=== PATIENT | female | born 1950 | race Caucasian/White ===

== ENCOUNTER 2017-03-23 05:39 | Inpatient (IN) | payer OTHER ==
--- NOTE | 2017-03-09 18:09 | HISTORY & PHYSICAL EXAMINATION ---
DATE OF ADMISSION: 03/23/2017 PROCEDURE: Right knee replacement. HISTORY OF PRESENT ILLNESS: The patient is a pleasant 66-year-old female who presents today for preop evaluation prior to right knee replacement. She states she is having pain in this knee for several years now, which has gradually worsened, has now gotten to the point that it is affecting her daily activities including walking, standing, going up and down steps. She has tried and failed previous cortisone injections as well as viscosupplementation and oral anti-inflammatories without relief. At this point in time, has failed conservative measures and would like to proceed with a right knee replacement. PAST MEDICAL HISTORY: 1. Hypertension. 2. High cholesterol. 3. GERD. 4. Anxiety. ALLERGIES: BETADINE. MEDICATIONS: 1. Purcell as needed for pain. 2. Lisinopril 10 mg daily. 3. Lovastatin 40 mg daily. 4. Mobic 15 mg daily. 5. Omeprazole 40 mg daily. 6. Sertraline 100 mg daily. PAST SURGICAL HISTORY: 1. Lower back surgery x4. 2. Previous rotator cuff repair. 3. Hysterectomy. FAMILY HISTORY: Noncontributory. SOCIAL HISTORY: The patient denies a history of smoking or tobacco use. No alcohol consumption. REVIEW OF SYSTEMS: Otherwise negative. Please see HPI for pertinent positives. PHYSICAL EXAMINATION: GENERAL: Gabe 66-year-old female in no acute distress, alert and oriented x3. HEENT: Normocephalic, atraumatic. CARDIAC: Regular rate and rhythm. No murmurs or gallops appreciated. Resting pulse 80 beats per minute. LUNGS: Clear to auscultation without rales or wheeze bilaterally. ABDOMEN: Soft, nontender. Bowel sounds present. EXTREMITIES: Right lower extremity is neurovascularly intact. Calves are soft and nontender. DP pulse +2. Demonstrates good quad tone. Straight leg raise without lag. No erythema or warmth. Has mild effusion. Overall has varus alignment. Range of motion is 0/3/115 and has diffuse tenderness. IMAGING: Reviewed of the right knee show findings consistent with degenerative joint disease including joint space narrowing, subchondral sclerosis, peripheral osteophytes noted. Has varus alignment. IMPRESSION: 1. Right knee degenerative joint disease. 2. Past medical history as outlined above. PLAN: Further care discussed with patient. At this point in time, has failed conservative measures and would like to proceed with a right knee replacement. We will place on aspirin 81 mg p.o. b.i.d. for a month postop. Otherwise, has no other questions or concerns.
[2017-03-21 15:07] VITALS: BMI 47.0
[2017-03-21 15:15] LABS: BASO % 0.6 %; BASO ABS # 0.04 K/uL (0-0.2); COMPLETE YES; EOS % 1.8 %; HEMATOCRIT 42.2 % (37-47); IG% 0.1 %; LYMPH % 17.6 %; MEAN CELL VOLUME 88.7 fL (80-100); MEAN CORPUSCULAR HEMOGLOBIN 28.8 pg (25-34); MEAN CORPUSCULAR HGB CONC 32.5 g/dl (32-36); MEAN PLATELET VOLUME 9.5 fL (7.4-10.4); MONO % 8.5 %; NEUT % 71.4 %; PLATELET COUNT 218 K/uL (130-400); RED BLOOD COUNT 4.76 M/uL (4.2-5.4)
[2017-03-21 15:21] LABS: URINE APPEARANCE CLOUDY (CLEAR); URINE COLOR DK YELLOW; URINE NITRITE NEG (NEG); URINE PH 5.5 (4.5-7.5); URINE SPECIFIC GRAVITY 1.031 (1.000-1.030); UROBILINOGEN NEG (NEG)
[2017-03-21 15:27] LABS: MANUAL MICROSCOPIC REQUIRED? NO; REVIEW REQ? NO; URINE BILIRUBIN NEG (NEG)
[2017-03-21 15:36] LABS: PARTIAL THROMBOPLASTIN RATIO 1.2; PROTHROMBIN TIME (PATIENT) 10.3 SECONDS (9.0-12.0)
--- NOTE | 2017-03-21 15:42 | PAT Medication Instructions ---
Service Date Mar 21, 2017. Current Home Medication List Hydrocodone/Acetaminophen 5MG/325MG (Preston 5MG/325MG), 1 TABLET PO DAILY PRN for Pain Lisinopril (Zestril), 10 MG PO HS Lovastatin (Mevacor), 40 MG PO QAM Meloxicam (Mobic), 15 MG PO QAM Naproxen (Naprosyn), 500 MG PO DAILY PRN for Pain Omeprazole (Prilosec), 20 MG PO QAM Sertraline (Zoloft), 1 TAB PO QAM Tramadol (Ultram), 50 MG PO Q8H PRN for Pain Medication Instructions For Your Scheduled Surgery - Hold the following medications PER SURGEONS INSTRUCTIONS: Meloxicam (Mobic), 15 MG PO QAM Naproxen (Naprosyn), 500 MG PO DAILY PRN for Pain - Hold the following medications 24 hours prior to surgery: Lisinopril (Zestril), 10 MG PO HS - Take the following medications the morning of surgery with a sip of water OTHERWISE NOTHING TO EAT OR DRINK AFTER MIDNIGHT: Omeprazole (Prilosec), 20 MG PO QAM Sertraline (Zoloft), 1 TAB PO QAM Hydrocodone/Acetaminophen 5MG/325MG (Preston 5MG/325MG), 1 TABLET PO DAILY PRN for Pain (may take up to 4 hours prior to surgery if needed) Tramadol (Ultram), 50 MG PO Q8H PRN for Pain (may take up to 4 hours prior to surgery if needed) Lovastatin (Mevacor), 40 MG PO QAM - Take the following medications as scheduled the night before surgery: Hydrocodone/Acetaminophen 5MG/325MG (Preston 5MG/325MG), 1 TABLET PO DAILY PRN for Pain Tramadol (Ultram), 50 MG PO Q8H PRN for Pain If you have any questions please call us at [phone] or [phone] or [phone]
[2017-03-21 16:15] LABS: CALCIUM 8.9 mg/dl (8.5-10.1); CREATININE 0.99 mg/dl (0.60-1.20); POTASSIUM 3.9 mmol/L (3.5-5.1)
--- NOTE | 2017-03-21 16:37 | DIAGNOSTIC IMAGING REPORT ---
CHEST PREADMISSION(PA/LAT) HISTORY: 66 years-old Female PAT preadmission exam. No acute chest complaints COMPARISON: None available TECHNIQUE: Frontal and lateral views of the chest FINDINGS: Cardiomediastinal and hilar silhouettes are within normal limits. There is atherosclerosis of the aorta. No pneumothorax, pleural effusion, focal airspace consolidation or overt pulmonary edema. Degenerative changes involve the spine and shoulders. There are surgical clips within the right upper abdomen suggesting prior cholecystectomy. IMPRESSION: No acute cardiopulmonary process. The above report was generated using voice recognition software. It may contain grammatical, syntax or spelling errors. Electronically signed by: Alverto Sahu M.D. 03/21/2017 4:36 PM Dictated Date/Time: 03/21/2017 4:35 PM
[~2017-03-23] VITALS: Ht 154.9 cm; Wt 111.9 kg
[2017-03-23] VITALS (9 sets, daily range): BP systolic 117–152; BP diastolic 72–82; PULSE 69–86; TEMP 36.5–37.2; O2SAT 93–98; Ht 154.9 cm; Wt 111.9 kg
[~2017-03-23 05:39] MED LIST: HYDR-5688 PO; LISI-461 PO; LOVA40TA4 PO; MELO7.5T5 PO; NAPR-1169 PO; OMEP20CA59 PO; SERT-234 PO; TRAM-10 PO
[2017-03-23] MEDS: TRANEXAMIC ACID INJ 1,000 MG in SODIUM CHLORIDE 0.9% 100ML 100 ML IV SCH ×2 (06:00→06:30)
[2017-03-23] MEDS ORDERED: LACTATED RINGER'S 1000ML 500 ML IV ONE (06:00)
[2017-03-23] MEDS ORDERED: FAMOTIDINE 20 MG TAB PO SCH (06:00)
[2017-03-23] MEDS ORDERED: DEXAMETHASONE 4 MG TAB PO SCH (06:00)
[2017-03-23] MEDS ORDERED: ROPIVACAINE 5MG/ML 30 ML 150 MG, BUPIVACAINE/EPINEPHR 0.5% MPF 30 ML, KETOROLAC TROMETH... INFIL SCH ×7 (06:00)
[2017-03-23] MEDS ORDERED: METOCLOPRAMIDE HCL 10 MG TAB PO SCH (06:00)
[2017-03-23] MEDS ORDERED: ACETAMINOPHEN 500 MG TAB PO SCH (06:00)
[2017-03-23] MEDS ORDERED: GABAPENTIN 300 MG CAP PO SCH (06:00)
[2017-03-23] MEDS ORDERED: CeleBREX 200 MG CAP PO SCH (06:00)
[2017-03-23] MEDS ORDERED: LACTATED RINGER'S 1000ML 1,000 ML IV SCH (06:00)
[2017-03-23] MEDS ORDERED: LACTATED RINGER'S 1000ML IV SCH (06:00)
[2017-03-23] MEDS ORDERED: CEFAZOLIN 2000 MG/60 ML D5W 60 ML IV SCH (06:00)
[2017-03-23] MEDS ORDERED: vitamin d PO (06:07)
[2017-03-23] MEDS ORDERED: BUPIVACAINE 0.5 % 5 MG/1 ML PF 10ML VIAL ONE (06:29)
[2017-03-23] MEDS ORDERED: BUPIVACAINE 0.25% 30 ML VIAL ONE (06:29)
--- NOTE | 2017-03-23 07:04 | History & Physical Bridge Note ---
H&P Re-Evaluation Bridge Note: I have examined the patient, reviewed the History & Physical and in the interval since the performance of the History & Physical I have noted the following changes of clinical significance: No changes noted
[2017-03-23] MEDS ORDERED: MIDAZOLAM HCL 1 MG/ML 2ML VIAL ONE (07:13)
[2017-03-23] MEDS ORDERED: KETAMINE HCL INJ 50 MG/ML 10 ML VIAL ONE (07:13)
[2017-03-23] MEDS ORDERED: FENTANYL CITRATE INJ 50 MCG/1 ML 2 ML VIAL ONE (07:13)
[2017-03-23] MEDS ORDERED: ORTHO JOINT ANESTHETIC ONE (07:56)
[2017-03-23] MEDS ORDERED: BACITRACIN 50000 UNIT VIAL ONE (07:56)
[2017-03-23] MEDS ORDERED: POVIDONE-IODINE OP SOLN 30 ML BTL ONE (07:56)
[2017-03-23] MEDS ORDERED: LIDOCAINE HCL 2% 2 ML VIAL (20MG/ML) ONE (08:37)
[2017-03-23] MEDS ORDERED: PROPOFOL IV EMULSION 10 MG/ML 20 ML VIAL IV ONE ×2 (08:37→11:44)
--- NOTE | 2017-03-23 09:22 | [facility] Operative Report ---
Operative Report Operative Date Mar 23, 2017. Pre-Operative Diagnosis Right knee degenerative joint disease Post-Operative Diagnosis Right knee degenerative joint disease Procedure(s) Performed Right total knee arthroplasty utilizing journey 2 nonlocked total knee arthroplasty size 4 femur 3 tibia Poly-[address] Damien Joseph Product Control And Logistics Analyst Surgeon(s) Jose Pyle PA-C Estimated Blood Loss 5cc Findings Patient presents with severe end-stage tricompartmental degenerative joint disease at failing attempts at conservative management including physical therapy anti-inflammatories relative rest activity modification corticosteroid injections bracing thorough discussion regarding risk altercations is been had regarding total knee arthroplasty blood loss injury to vessels and nerves patient understands was Caucasians elect proceed for total knee arthroplasty Specimens A. Right knee bone and tissue Complication(s) None Disposition Recovery Room / PACU Indications Patient presents after failing attempts at conservative management severe end- stage stage Tri compartmental degenerative joint disease medial subchondral osteophytes subchondral sclerosis shifted femur on tibia medially with varus alignment and large medial and lateral osteophytes Description of Procedure After proper prepping and draping of the Right lower extremity anterior midline incision was made over the region of the extensor extensor mechanism after meticulous hemostasis was obtained and maintained in subcutaneous tissues a medial parapatellar incision was made The patella was subluxed lateralward the medial lateral gutter were cleaned from any hypertrophic synovitis and scar tissue of the distal femoral block was placed and the distal femoral osteotomy cut was made subsequently the chamfers anterior and posterior osteotomy cuts were made utilizing the 4-in-1 block the tibia was subsequently subluxed anteriorward medial and ateral meniscal remnants were excised in their entirety remnants of the anterior and posterior cruciate ligaments were excised in their entirety excellent exposure of the proximal tibia was obtained the tibial osteotomy guide was placed on the proximal tibial osteotomy cut was made once again the knee was irrigated with copious amounts of sterile saline solution the patella was subsequently everted lateralward thickened scar tissue around the patella was removed the patella was subsequently cut utilizing a freehand technique and was drilled prepared for final preparation and placement of patella socially flexion-extension gaps were checked and the equal and symmetric trials were placed to the appropriate femoral and tibial trials with poly-spacer being placed for equal flexion and extension gaps and full range of motion including extension to 0 and flexion to 140 the trial components after having been taken to recovery range of motion was subsequently removed meticulous hemostasis was obtained and maintained subsequently a knee block injection of joint cocktail including ropivacaine 0.5% 150 mg. Bupivacaine 0.5 % epinephrine 1-200,030 mL's toradol 30 mg dexamethasone 4 mg ketamine 10 mg clonidine 100 micrograms normal saline solution 30 mg was infiltrated into the soft tissues of the posterior knee medial lateral gutters and periosteal synovium special attention was paid to protect neurovascular structures at all times subsequently trial components having been removed the knee was irrigated with sterile saline solution. debris was removed the proximal tibia was subsequently prepared and was made ready for the placement of the tibial component tibial component was also cemented and tamped into position the femoral component was subsequently placed and cemented in the position the patellar component was subsequently cemented in position because hemostasis once again obtained and maintained wound having been thoroughly irrigated with debridement and debridement lavage was performed as well as a medial parapatellar incision closed with #1 Vicryl in interrupted fashion subcutaneous was closed with #2 Vicryl skin was closed with skin clips. PA-C was necessary for prepping and drapping as well as wound closure of deep fascia Sub cutaneous tissue and skin and was necessary for the case. A sterile compressive dressing was placed patient was taken to recovery in stable condition of report dictated by Jake I attest to the content of the Intraoperative Record and any orders documented therein. Any exceptions are noted below. I attest to the content of the Intraoperative Record and any orders documented therein. Any exceptions are noted below.
[2017-03-23] MEDS ORDERED: MoRPHine SULFATE 4 MG/ML 1 ML CARP\\VIAL IV PRN (10:00)
[2017-03-23] MEDS ORDERED: ONDANSETRON INJ 2 MG/ML 2 ML VIAL IV PRN ×2 (10:00→10:45)
[2017-03-23] MEDS ORDERED: MoRPHine SULFATE 2 MG/ML CARP IV PRN (10:00)
[2017-03-23] MEDS ORDERED: ALUMINUM/MAGNESIUM/SIMETH (MAALOX MAX) 30 ML UDC PO PRN (10:00)
[2017-03-23] MEDS ORDERED: BISACODYL 10 MG SUPP PR PRN (10:00)
[2017-03-23] MEDS ORDERED: MAGNESIUM HYDROXIDE SUSP 30 ML UDC PO PRN (10:00)
[2017-03-23] MEDS ORDERED: HYDROmorphone INJ 2 MG/ML SYR/VIAL IV PRN (10:45)
[2017-03-23] MEDS ORDERED: EpHEDrine SULFATE INJ 50 MG/ML AMP IV PRN (10:45)
[2017-03-23] MEDS ORDERED: ATROPINE SULFATE 0.1 MG/ML 5ML SYR IV PRN (10:45)
[2017-03-23] MEDS ORDERED: PHENYLEPHRINE 100MCG/ML 5ML SYR IV PRN (10:45)
[2017-03-23] MEDS ORDERED: KETOROLAC TROMETHAMINE 30 MG/ML VIAL IV. PRN (10:45)
--- NOTE | 2017-03-23 10:53 | DIAGNOSTIC IMAGING REPORT ---
R KNEE 1 OR 2 VIEWS ROUTINE CLINICAL HISTORY: Status post total right knee arthroplasty. COMPARISON: None FINDINGS: Alignment of the total right knee arthroplasty is anatomic. There is no periprosthetic fracture or unexpected radiopaque foreign body. Drains are in place. IMPRESSION: Expected findings following total right knee arthroplasty. Electronically signed by: Bandar Fritz M.D. 03/23/2017 10:52 AM Dictated Date/Time: 03/23/2017 10:52 AM
--- NOTE | 2017-03-23 11:10 | Anesthesiology Progress Note ---
Anesthesia Post Op Note Date & Time Mar 23, 2017 at 11:10 Vital Signs Pain Intensity: 0 Vital Signs Past 12 Hours Date Time Temp Pulse Resp B/P (MAP) Pulse Ox O2 Delivery O2 Flow Rate FiO2 03/23/17 10:45 36.5 69 16 129/73 96 Nasal Cannula 3 03/23/17 10:35 36.5 72 16 117/68 97 Nasal Cannula 3 03/23/17 10:25 68 16 125/69 96 Nasal Cannula 3 03/23/17 10:15 73 16 128/65 98 Nasal Cannula 3 03/23/17 10:05 76 16 99/66 98 Oxymask 10 03/23/17 09:55 36.6 80 16 118/65 96 Oxymask 10 03/23/17 06:15 36.5 80 18 145/82 94 Room Air Notes Mental Status: alert / awake / arousable, participated in evaluation Pt Amnestic to Procedure: Yes Nausea / Vomiting: adequately controlled Pain: adequately controlled Airway Patency, RR, SpO2: stable & adequate BP & HR: stable & adequate Hydration State: stable & adequate Anesthetic Complications: no major complications apparent
[2017-03-23] MEDS ORDERED: SODIUM CHLORIDE 0.9% INJ 10 ML VIAL ONE (11:44)
[2017-03-23] MEDS: D5W AND 1/2NSS + 20MEQ KCL 1,000 ML IV SCH ×2 (13:13→22:22)
[2017-03-23] MEDS: FERROUS GLUCONATE 324 MG TAB PO SCH ×2 (13:13→18:27)
[2017-03-23] MEDS: ACETAMINOPHEN 500 MG TAB PO SCH ×2 (14:18→22:23)
[2017-03-23] MEDS: CEFAZOLIN IV 2,000 MG in DEXTROSE 5% 50ML 50 ML IV SCH ×2 (16:06→23:42)
[2017-03-23] MEDS: SENNA 8.6 MG TAB PO SCH (20:35)
[2017-03-23] MEDS: OXYCODONE HCL 10 MG TABCR (OXYCONTIN) PO SCH (20:35)
[2017-03-23] MEDS: DOCUSATE SODIUM 100 MG CAP PO SCH (20:35)
[2017-03-23] MEDS: CeleBREX 200 MG CAP PO SCH (20:35)
[2017-03-23] MEDS: ASPIRIN 81 MG ECTAB PO SCH (20:35)
[2017-03-23] MEDS: LISINOPRIL 10 MG TAB PO SCH (20:36)
[2017-03-24 03:14] VITALS: BP 126/74; PULSE 70; TEMP 36.8; O2SAT 96
[2017-03-24] MEDS: OXYCODONE HCL IR 5 MG TAB (IMMEDIATE RELEASE) PO PRN ×4 (04:21→19:27)
[2017-03-24] MEDS: ACETAMINOPHEN 500 MG TAB PO SCH ×3 (06:16→21:19)
[2017-03-24 06:47] LABS: MEAN CELL VOLUME 87.3 fL (80-100); MEAN CORPUSCULAR HEMOGLOBIN 29.7 pg (25-34); MEAN PLATELET VOLUME 9.6 fL (7.4-10.4); PLATELET COUNT 195 K/uL (130-400); RED BLOOD COUNT 4.01 M/uL (4.2-5.4); WHITE BLOOD COUNT 13.91 K/uL (4.8-10.8)
--- NOTE | 2017-03-24 06:56 | Orthopedic Progress Note ---
Orthopedic Progress Note Date of Service Mar 24, 2017. Subjective Post OP Day: 1 (s/p Right TKA) Reports: feeling well, pain controlled w PO medications, Denies: complaints, chest pain, SOB, nausea / vomiting, light headedness, calf pain Objective calves soft nontender, N/V intact, capillary refill less than 2 sec., A&O x3, toes mobile, hemovac drainage (150cc/8 hours) Date Time Temp Pulse Resp B/P (MAP) Pulse Ox O2 Delivery O2 Flow Rate FiO2 03/24/17 03:14 36.8 70 16 126/74 (91) 96 Room Air 03/23/17 23:30 Room Air 03/23/17 23:29 36.8 74 16 118/73 (88) 96 Room Air 03/23/17 20:21 36.7 80 18 134/77 (96) 95 Room Air 03/23/17 15:44 Room Air 03/23/17 15:25 36.9 86 18 152/82 (105) 98 Nasal Cannula 3.0 03/23/17 14:00 80 16 151/81 (104) 98 Nasal Cannula 3.0 03/23/17 13:00 74 16 117/72 (87) 98 3.0 03/23/17 12:16 70 16 120/76 (91) 97 Nasal Cannula 3.0 03/23/17 11:30 36.6 69 16 124/76 (92) 98 Room Air 03/23/17 11:05 93 Nasal Cannula 3.0 03/23/17 11:05 93 Nasal Cannula 3.0 03/23/17 11:05 37.2 72 16 136/76 (96) 93 Nasal Cannula 3.0 03/23/17 10:45 36.5 69 16 129/73 96 Nasal Cannula 3 03/23/17 10:35 36.5 72 16 117/68 97 Nasal Cannula 3 03/23/17 10:25 68 16 125/69 96 Nasal Cannula 3 03/23/17 10:15 73 16 128/65 98 Nasal Cannula 3 03/23/17 10:05 76 16 99/66 98 Oxymask 10 03/23/17 09:55 36.6 80 16 118/65 96 Oxymask 10 Laboratory Results 24 Hours: Test 03/24/17 06:22 Hematocrit 35.0 % Hemoglobin 11.9 g/dL Assessment & Plan Assessment: POD #1 s/p Right TKA -pt/ot -dvt proph w/ DOMINIQUE/SCD/ASA -plan for d/c home with HHPT PAST MEDICAL HISTORY: 1. Hypertension. 2. High cholesterol. 3. GERD. 4. Anxiety. Discharge Planning Discharge Planning: home with home health DVT Prophylaxis: TEDs, SCDs, ASA Therapy: Physical Therapy
[2017-03-24 07:17] LABS: BUN/CREATININE RATIO 15.7 (10-20); CALCIUM 8.1 mg/dl (8.5-10.1); CREATININE 0.88 mg/dl (0.60-1.20); POTASSIUM 4.5 mmol/L (3.5-5.1)
--- NOTE | 2017-03-24 07:38 | Discharge Instructions ---
Discharge Instructions Date of Service Mar 24, 2017. Admission Reason for Admission: Right Knee Osteoarthritis Discharge Discharge Diagnosis / Problem: right total knee replacement Discharge Goals Goal(s): Decrease discomfort, Improve function, Increase independence Activity Recommendations Activity Limitations: as noted below Weightbearing Status: Right weightbearing (as tolerated) . Instructions / Follow-Up Instructions / Follow-Up ACTIVITY RECOMMENDATIONS: SELF CARE INSTRUCTIONS AFTER TOTAL KNEE REPLACEMENT A. You may need to continue a physical therapy program after discharge from the hospital. There are several options available to you. Your doctor will assist you in selecting the best one for you. 1. An out-patient facility 2 to 3 times a week for therapy or home therapy. 2. Continue working on all exercises taught to you in the hospital. Your goals should be to increase bending of your knee to 90 degrees and beyond and to fully straighten your knee. B. You may progress at your own pace from walking with a walker or crutches to a cane; then to no assistive devices. C. Make walking a part of your daily routine. Be up as much as comfortable with rest periods throughout the day. Rest with leg elevation is very important. Use the ice wrap frequently for the first 3-4 weeks. D. There are no restrictions on activities. You may ride in a car, shop, participate in sed special education teacher and all social activities. E. Wear the long elastic stockings (DOMINIQUE hose) 20 hours a day for 2 weeks after surgery. They can be removed several times a day for laundering and for a bath. F. You may shower, no tub baths until cleared by your doctor. SPECIAL CARE INSTRUCTIONS: VERY IMPORTANT TO READ AND REVIEW A. There are a few signs you need to watch for after you are home. Call [facility] if you notice any of the followin. Increased severe knee pain. Some pain is expected especially when you exercise. 2. Increased swelling in your leg or knee; pain or swelling of the calf muscle in either lower leg. 3. Any fluid drainage from the incision. 4. Shortness of breath or chest pain. B. Please call [facility] at if you have any concerns or questions about your operation or recovery. The doctor or his nurse will return your call promptly. C. You must take antibiotics before dental work, bladder, bowel or other surgery. Your doctor will provide you with a permanent care to carry describing this precaution. IMPORTANT: * REMEMBER TO TAKE ASPIRIN, 81 MG, TWICE DAILY FOR 4 WEEKS UNLESS OTHERWISE DIRECTED. THIS IS YOUR BLOOD THINNER. * HIGH RISK PATIENTS MAY BE PRESCRIBED A STRONGER BLOOD THINNER. THIS WILL BE PROVIDED AT DISCHARGE. * CALL IF INCREASED PAIN, REDNESS, DRAINAGE OR FEVER GREATER THAT 101. * WEAR DOMINIQUE HOSE 20 HOURS PER DAY FOR 2 WEEKS. * DERMABOND Prineo- This is a mesh tape dressing that is covered with glue. It should remain in place until the incision is properly healed, usually 10-14 days. This dressing is designed to naturally slough off. You may trim the excess mesh tape as it peels off. Incision may be briefly wet in a shower. Dry immediately by blotting with a clean, dry towel. Do not bath or swim until instructed by your doctor. Do not scratch, rub, or pick at the dressing. Do not apply any topical ointments or lotions until dressing is completely removed and/or instructed by your doctor. There may be a small piece of suture material at one end of your incision. Do not pull or trim this. If it is bothersome or catching on clothing, you may cover it with a band-aid. FOLLOW UP VISIT: If appointment is not already scheduled: Please call [facility] to make a follow-up appointment for 2 weeks after your surgery at . Current Hospital Diet Patient's current hospital diet: Regular Diet Discharge Diet Recommended Diet: Regular Diet Procedures Procedures Performed: Right total knee arthroplasty utilizing journey 2 nonlocked total knee arthroplasty size 4 femur 3 tibia Poly-29 oval patella Pending Studies Studies pending at discharge: no Laboratory Results Hemoglobin A1c Test 03/21/17 14:57 Range/Units Estimated Average Glucose 123 mg/dl Hemoglobin A1c 5.9 H 4.5-5.6 % Medical Emergencies . Who to Call and When: Medical Emergencies: If at any time you feel your situation is an emergency, please call 911 immediately. . Non-Emergent Contact Non-Emergency issues call your: Primary Care Provider, Surgeon . "Provider Documentation" section prepared by Hima Jeffrey. . VTE Core Measure Inpt VTE Proph given/why not?: Other Anticoagulation (ASA 81mg po bid x 1 month ), TSantos [place], SCD's [place] Drug Monitoring Program Search Results: patient reviewed within database, no issues identified, see additional documentation Drug Monitoring Findings: patient instructed to receive narcotic prescriptions only from [facility] providers during her 90 day post-op period.
[2017-03-24] MEDS: D5W AND 1/2NSS + 20MEQ KCL 1,000 ML IV SCH (07:59)
[2017-03-24 08:01] VITALS: BP 131/83; PULSE 68; TEMP 36.8; O2SAT 98
[2017-03-24] MEDS: OXYCODONE HCL 10 MG TABCR (OXYCONTIN) PO SCH ×2 (08:59→21:18)
[2017-03-24] MEDS: ASPIRIN 81 MG ECTAB PO SCH ×2 (09:00→21:18)
[2017-03-24] MEDS: SERTRALINE HCL 100 MG TAB PO SCH (09:00)
[2017-03-24] MEDS: FERROUS GLUCONATE 324 MG TAB PO SCH ×3 (09:00→18:09)
[2017-03-24] MEDS: DOCUSATE SODIUM 100 MG CAP PO SCH ×2 (09:00→21:00)
[2017-03-24] MEDS: LOVASTATIN 20 MG TAB PO SCH (09:00)
[2017-03-24] MEDS: PANTOprazole SOD 40 MG TAB PO SCH (09:01)
[2017-03-24] MEDS: CeleBREX 200 MG CAP PO SCH ×2 (09:01→21:18)
[2017-03-24] MEDS: MULTIVITAMIN TAB PO SCH (09:01)
--- NOTE | 2017-03-24 11:01 | Anesthesiology Progress Note ---
Anesthesia Post Op Note Date & Time Mar 24, 2017 at 10:58 Vital Signs Pain Intensity: 3.0 Vital Signs Past 12 Hours Date Time Temp Pulse Resp B/P (MAP) Pulse Ox O2 Delivery O2 Flow Rate FiO2 03/24/17 08:01 36.8 68 16 131/83 (99) 98 Room Air 03/24/17 08:00 Room Air 03/24/17 03:14 36.8 70 16 126/74 (91) 96 Room Air 03/23/17 23:30 Room Air 03/23/17 23:29 36.8 74 16 118/73 (88) 96 Room Air Notes Mental Status: alert / awake / arousable, participated in evaluation Pt Amnestic to Procedure: Yes Nausea / Vomiting: adequately controlled Pain: adequately controlled Airway Patency, RR, SpO2: stable & adequate BP & HR: stable & adequate Hydration State: stable & adequate Neuraxial Anesthesia: was administered, sensory block resolved Anesthetic Complications: no major complications apparent
[2017-03-24 11:34] VITALS: BP 127/66; PULSE 74; TEMP 36.7; O2SAT 97
[2017-03-24 16:00] VITALS: BP 114/75; PULSE 72; TEMP 36.4; O2SAT 95
[2017-03-24] MEDS: SENNA 8.6 MG TAB PO SCH (21:00)
[2017-03-24] MEDS: LISINOPRIL 10 MG TAB PO SCH (21:19)
[2017-03-24 23:08] VITALS: BP 108/65; PULSE 71; TEMP 36.8; O2SAT 94
[2017-03-25] MEDS: OXYCODONE HCL IR 5 MG TAB (IMMEDIATE RELEASE) PO PRN ×2 (05:08→09:17)
[2017-03-25] MEDS: ACETAMINOPHEN 500 MG TAB PO SCH (05:09)
[2017-03-25 07:18] VITALS: BP 114/73; PULSE 76; TEMP 36.8; O2SAT 96
[2017-03-25] MEDS: DOCUSATE SODIUM 100 MG CAP PO SCH ×2 (08:23→08:31)
[2017-03-25] MEDS: ASPIRIN 81 MG ECTAB PO SCH (08:23)
[2017-03-25] MEDS: FERROUS GLUCONATE 324 MG TAB PO SCH (08:23)
[2017-03-25] MEDS: SERTRALINE HCL 100 MG TAB PO SCH (08:23)
[2017-03-25] MEDS: MULTIVITAMIN TAB PO SCH (08:24)
[2017-03-25] MEDS: PANTOprazole SOD 40 MG TAB PO SCH (08:24)
[2017-03-25] MEDS: LOVASTATIN 20 MG TAB PO SCH (08:24)
[2017-03-25] MEDS: CeleBREX 200 MG CAP PO SCH (08:24)
[2017-03-25] MEDS: OXYCODONE HCL 10 MG TABCR (OXYCONTIN) PO SCH (08:27)
[2017-03-25] MEDS ORDERED: RXC5 PO (08:52)
[2017-03-25] MEDS ORDERED: ACET-24 PO (08:52)
[2017-03-25] MEDS ORDERED: SNK PO (08:52)
[2017-03-25] MEDS ORDERED: ASPEC81 PO (08:52)
[2017-03-25] MEDS ORDERED: CLB200 PO (08:52)
[2017-03-25 09:28] VITALS: BP 114/73; PULSE 76; TEMP 36.8; O2SAT 96
--- NOTE | 2017-03-25 11:35 | Orthopedic Progress Note ---
Orthopedic Progress Note Date of Service Mar 25, 2017. Subjective Post OP Day: 2 Reports: feeling well, Denies: chest pain, SOB, nausea / vomiting, light headedness, calf pain Objective calves soft nontender, N/V intact, incision C/D/I, A&O x3, toes mobile Date Time Temp Pulse Resp B/P (MAP) Pulse Ox O2 Delivery O2 Flow Rate FiO2 03/25/17 09:28 36.8 76 18 96 Room Air 03/25/17 07:35 Room Air 03/25/17 07:18 36.8 76 18 114/73 (87) 96 Room Air 03/24/17 23:08 36.8 71 16 108/65 (79) 94 Room Air 03/24/17 19:40 Room Air 03/24/17 16:00 36.4 72 18 114/75 (88) 95 Room Air Assessment & Plan Assessment: POD #2 s/p Right TKA -pt/ot -dvt proph w/ DOMINIQUE/SCD/ASA -plan for d/c home with HHPT. DC HOME TODAY PAST MEDICAL HISTORY: 1. Hypertension. 2. High cholesterol. 3. GERD. 4. Anxiety. Discharge Planning Discharge Planning: home with home health DVT Prophylaxis: TEDs, SCDs, ASA Therapy: Physical Therapy
--- NOTE | 2017-03-28 12:47 | DISCHARGE SUMMARY ---
DISCHARGE DIAGNOSIS: Degenerative joint disease, right knee. SECONDARY DIAGNOSES: Hypertension, hypercholesterolemia, GERD, anxiety. CONSULTS: None. COMPLICATIONS: None. PROCEDURES: Right total knee arthroplasty performed by Dr. Joseph on 03/23/2017. BRIEF HISTORY: As dictated in the history and physical. HOSPITAL SUMMARY: The patient was admitted on the above-noted date and had the above-noted surgery performed which she tolerated well. On the first postoperative day she was feeling well, pain was controlled and she had no complaints. Calves were soft, nontender, neurovascularly intact. Capillary refill is less than 2 seconds. Toes were mobile and vital signs were stable. She is afebrile. Hemoglobin was 11.9 and she was started on physical therapy protocol and continued on DVT prophylaxis and pain management. Plans were for home health PT upon discharge. The rest of her stay was essentially uneventful and by 03/25/2017 she was feeling well and had no complaints. Calves were soft and nontender. Neurovascular intact. Incision was benign. Toes were mobile. Vital signs were stable. She was progressing with her physical therapy and it was felt she could be discharged to home. For further review, please see chart. LAB AND X-RAY DATA: As per chart. DISCHARGE INSTRUCTIONS: The patient was discharged to home in satisfactory condition on 03/25/2017. DIET: Regular. ACTIVITY: Follow TK instruction sheets and special care instructions as noted, weightbearing as tolerated right lower extremity. Follow up with Dr. Joseph in 2 weeks. The patient to call for appointment if one has not been made for you. DISCHARGE MEDICATIONS: Acetaminophen 1000 mg p.o. q. 8 hours, aspirin 81 mg p.o. b.i.d., Celebrex 200 mg p.o. b.i.d., oxycodone 5-10 mg p.o. q. 4 hours p.r.n., senna 17.2 mg at bedtime. Resume taking lisinopril 10 mg at bedtime, lovastatin 40 mg p.o. q.a.m., omeprazole 20 mg p.o. q.a.m., sertraline 1 tab p.o. q.a.m. and vitamin D one tab p.o. daily. Stop taking Olin, meloxicam, naproxen and tramadol.
== END 2017-03-25 11:07 | disposition home health service (06) | DRG 470 ==
LOC: C.ACU 05:39 → C.3E 07:00 → ENRESERV 10:54
PROVIDERS: ADMIT Orthopaedic Surgery; ATTEND Orthopaedic Surgery
PROC: 0SRC0J9 Replacement of Right Knee Joint with Synthetic Substitute, Cemented, Open Approach (ICD-10-PCS; principal; 2017-03-23 08:00)
DX: M17.11 Unilateral primary osteoarthritis, right knee (principal); I10 Essential (primary) hypertension; E78.00 Pure hypercholesterolemia, unspecified; K21.9 Gastro-esophageal reflux disease without esophagitis; F41.9 Anxiety disorder, unspecified; E66.01 Morbid (severe) obesity due to excess calories

== ENCOUNTER → 2017-06-23 | Outpatient (CLI) | payer OTHER ==
[~2017-06-23] MED LIST changes: +ACET-24 PO; +ASPI-320 PO; +CLB200 PO; +CRS/10 PO; -HYDR-5688 PO; -MELO7.5T5 PO; -NAPR-1169 PO; +RXC5 PO; +SNK PO; -TRAM-10 PO; +vitamin d PO
[2017-06-23 16:33] LABS: BASO % 0.3 %; BASO ABS # 0.02 K/uL (0-0.2); EOS ABS # 0.26 K/uL (0-0.5); HEMATOCRIT 39.7 % (37-47); HEMOGLOBIN 12.9 g/dL (12.0-16.0); IG# 0.01 K/uL (0.00-0.02); LYMPH % 19.6 %; LYMPH ABS # 1.29 K/uL (1.2-3.4); MEAN CELL VOLUME 88.4 fL (80-100); MEAN CORPUSCULAR HEMOGLOBIN 28.7 pg (25-34); MEAN CORPUSCULAR HGB CONC 32.5 g/dl (32-36); MONO % 6.8 %; MONO ABS # 0.45 K/uL (0.11-0.59); NEUT % 69.1 %; NEUT ABS # 4.55 K/uL (1.4-6.5); PLATELET COUNT 224 K/uL (130-400); RED CELL DISTRIBUTION WIDTH CV 13.1 % (11.5-14.5); RED CELL DISTRIBUTION WIDTH SD 42.1 fL (36.4-46.3); WHITE BLOOD COUNT 6.58 K/uL (4.8-10.8)
[2017-06-23 16:43] LABS: PTT PATIENT 29.8 SECONDS (21.0-31.0)
[2017-06-23 18:21] LABS: ALBUMIN 3.4 gm/dl (3.4-5.0); BLOOD UREA NITROGEN 10 mg/dl (7-18); CALCIUM 8.4 mg/dl (8.5-10.1); CARBON DIOXIDE 27 mmol/L (21-32); CREATININE 0.95 mg/dl (0.60-1.20); GLUCOSE 98 mg/dl (70-99); SODIUM 144 mmol/L (136-145)
[2017-06-24 06:07] LABS: HEMOGLOBIN A1C 5.6 % (4.5-5.6)
--- NOTE | 2017-06-30 08:03 | CODING QUERY MEDICAL NECESSITY ---
CQSUPPORTING DIAGNOSIS NEEDED A supporting diagnosis is required for the test/procedure performed on this patient in order for us to be reimbursed by the patient's insurance. Please provide a supporting diagnosis for the following test/procedure listed below next to the test name along with your signature. *If there is no additional diagnosis for this patient that would support the following test/procedure please document that below next to the test/procedure. Test(s)/Procedure(s) that require a supporting diagnosis: DOS 06/23/17 GLYCATED HEMOGLOBIN TEST BLOOD COUNTS TEST Provider Signature: Date: Thank you [facility] Once completed, please kindly fax back to [phone] For questions please call [phone]
== END | disposition home or self-care (01) ==
LOC: C.LAB 13:50
PROVIDERS: ATTEND Orthopaedic Surgery
DX: M17.12 Unilateral primary osteoarthritis, left knee (principal); Z01.812 Encounter for preprocedural laboratory examination

== ENCOUNTER 2017-06-28 05:52 | Inpatient (IN) | payer OTHER ==
--- NOTE | 2017-06-07 19:15 | History and Physical ---
History & Physical Date of Service Jun 07, 2017. History & Physical PROCEDURE: Left knee replacement. HISTORY OF PRESENT ILLNESS: The patient is a pleasant 66-year-old female who presents today for preop evaluation prior to a left knee replacement. She states she is having pain in this knee for several years now, which has gradually worsened, has now gotten to the point that it is affecting her daily activities including walking, standing, going up and down steps. she recently underwent right TKA and is doing well. She has tried and failed previous cortisone injections as well as viscosupplementation and oral anti-inflammatories without relief. At this point in time, has failed conservative measures and would like to proceed with a left knee replacement. PAST MEDICAL HISTORY: 1. Hypertension. 2. High cholesterol. 3. GERD. 4. Anxiety. ALLERGIES: BETADINE. MEDICATIONS: 1. [place] as needed for pain. 2. Lisinopril 10 mg daily. 3. Lovastatin 40 mg daily. 4. Mobic 15 mg daily. 5. Omeprazole 40 mg daily. 6. Sertraline 100 mg daily. PAST SURGICAL HISTORY: 1. Lower back surgery x4. 2. Previous rotator cuff repair. 3. Hysterectomy. 4. Right TKA March 2017 FAMILY HISTORY: Noncontributory. SOCIAL HISTORY: The patient denies a history of smoking or tobacco use. No alcohol consumption. REVIEW OF SYSTEMS: Otherwise negative. Please see HPI for pertinent positives. PHYSICAL EXAMINATION: GENERAL: Gabe 66-year-old female in no acute distress, alert and oriented x3. HEENT: Normocephalic, atraumatic. CARDIAC: Regular rate and rhythm. No murmurs or gallops appreciated. Resting pulse 76 beats per minute. LUNGS: Clear to auscultation without rales or wheeze bilaterally. ABDOMEN: Soft, nontender. Bowel sounds present. EXTREMITIES: left lower extremity is neurovascularly intact. Calves are soft and nontender. DP pulse +2. Demonstrates good quad tone. Straight leg raise without lag. No erythema or warmth. Has mild effusion. Overall has varus alignment. Range of motion is 0/5/115 and has diffuse tenderness. IMAGING: Reviewed of the left knee show findings consistent with degenerative joint disease including joint space narrowing, subchondral sclerosis, peripheral osteophytes noted. Has varus alignment. IMPRESSION: 1. Left knee degenerative joint disease. 2. Past medical history as outlined above. PLAN: Further care discussed with patient. At this point in time, has failed conservative measures and would like to proceed with a Left knee replacement. We will place on aspirin 81 mg p.o. b.i.d. for a month postop. Otherwise, has no other questions or concerns. she was discharged home with PT last time and would like the same this time as well.
[~2017-06-28] VITALS: Ht 154.9 cm; Wt 108.0 kg
[2017-06-28] VITALS (11 sets, daily range): BP systolic 117–163; BP diastolic 63–89; PULSE 75–90; TEMP 36.6–37.1; O2SAT 95–97; Ht 154.9 cm; Wt 108.0 kg
[~2017-06-28 05:52] MED LIST changes: +ASPEC81 PO; -ASPI-320 PO; -CRS/10 PO
[2017-06-28] MEDS ORDERED: CEFAZOLIN 2000MG IV PUSH 10 ML IV SCH (06:00)
[2017-06-28] MEDS ORDERED: ROPIVACAINE 5MG/ML 30 ML 150 MG, BUPIVACAINE 0.5% MPF INJ 30 ML, EpINEphrine HCL INJ 0.... INFIL SCH ×8 (06:00)
[2017-06-28] MEDS ORDERED: GABAPENTIN 300 MG CAP PO SCH (06:00)
[2017-06-28] MEDS ORDERED: ACETAMINOPHEN 500 MG TAB PO SCH (06:00)
[2017-06-28] MEDS ORDERED: CeleBREX 200 MG CAP PO SCH (06:00)
[2017-06-28] MEDS ORDERED: DEXAMETHASONE 4 MG TAB PO SCH (06:00)
[2017-06-28] MEDS ORDERED: LACTATED RINGER'S 500 ML IV SCH (06:00)
[2017-06-28] MEDS ORDERED: LACTATED RINGER'S 1000ML IV SCH (06:00)
[2017-06-28] MEDS ORDERED: FAMOTIDINE 20 MG TAB PO SCH (06:00)
[2017-06-28] MEDS ORDERED: LACTATED RINGER'S 1000ML 1,000 ML IV SCH (06:00)
[2017-06-28] MEDS ORDERED: METOCLOPRAMIDE HCL 10 MG TAB PO SCH (06:00)
[2017-06-28] MEDS ORDERED: BUPIVACAINE 0.25% 30 ML VIAL ONE (06:25)
[2017-06-28] MEDS ORDERED: BUPIVACAINE 0.5 % 5 MG/1 ML PF 10ML VIAL ONE (06:25)
[2017-06-28] MEDS ORDERED: ATROPINE SULFATE 0.1 MG/ML 5ML SYR IV PRN (06:45)
[2017-06-28] MEDS ORDERED: EpHEDrine SULFATE INJ 50 MG/ML AMP IV PRN (06:45)
[2017-06-28] MEDS ORDERED: ONDANSETRON INJ 2 MG/ML 2 ML VIAL IV PRN ×2 (06:45→10:45)
[2017-06-28] MEDS ORDERED: ORTHO JOINT ANESTHETIC ONE (07:00)
[2017-06-28] MEDS ORDERED: POVIDONE-IODINE OP SOLN 30 ML BTL ONE (07:00)
[2017-06-28] MEDS ORDERED: BACITRACIN 50000 UNIT VIAL ONE (07:00)
[2017-06-28] MEDS ORDERED: PHENYLEPHRINE 100MCG/ML 5ML SYR ONE (07:05)
[2017-06-28] MEDS ORDERED: PROPOFOL IV EMULSION 10 MG/ML 20 ML VIAL IV ONE ×2 (07:05→10:01)
[2017-06-28] MEDS ORDERED: LIDOCAINE HCL 2% 2 ML VIAL (20MG/ML) ONE (07:05)
[2017-06-28] MEDS ORDERED: FENTANYL CITRATE INJ 50 MCG/1 ML 2 ML VIAL ONE (07:06)
[2017-06-28] MEDS ORDERED: MIDAZOLAM HCL 1 MG/ML 2ML VIAL ONE (07:06)
[2017-06-28] MEDS ORDERED: EpHEDrine SULFATE 50MG/5ML SYR ONE (07:11)
--- NOTE | 2017-06-28 09:46 | [facility] Operative Report ---
Operative Report Operative Date Jun 28, 2017. Pre-Operative Diagnosis Left Knee Degenerative Joint Disease Post-Operative Diagnosis Left Knee Degenerative Joint Disease Procedure(s) Performed Left Total Knee Arthroplasty utilizing Tejeda [employer] Nephew journey 2 nonlocked total knee arthroplasty size 4 femur 3 tibia Poly-[address] Joseph High Lift Mule Operator Surgeon(s) Jose Pyle PA-C Estimated Blood Loss 5cc Findings Patient presents with severe end-stage DJD left knee large muscle conservative therapy including physical therapy anti-inflammatories relative rest activity modification injections viscus supplementation patient's x-rays revealed evidence of subchondral sclerosis cystic change varus alignment [id number] changes of marginal osteophytes Specimens A: Left Knee Bone and Tissue Complication(s) None Disposition Recovery Room / PACU Indications Patient presents after failing attempts at conservative management including physical therapy anti-inflammatories relative rest activity modification injections x-rays reveal varus alignment on the bone changes subchondral cystic changes with marginal osteophytes and varus alignment Description of Procedure After proper prepping and draping of the left lower extremity anterior midline incision was made over the region of the extensor extensor mechanism after meticulous hemostasis was obtained and maintained in subcutaneous tissues a medial parapatellar incision was made The patella was subluxed lateralward the medial lateral gutter were cleaned from any hypertrophic synovitis and scar tissue of the distal femoral block was placed and the distal femoral osteotomy cut was made subsequently the chamfers anterior and posterior osteotomy cuts were made utilizing the 4-in-1 block the tibia was subsequently subluxed anteriorward medial and ateral meniscal remnants were excised in their entirety remnants of the anterior and posterior cruciate ligaments were excised in their entirety excellent exposure of the proximal tibia was obtained the tibial osteotomy guide was placed on the proximal tibial osteotomy cut was made once again the knee was irrigated with copious amounts of sterile saline solution the patella was subsequently everted lateralward thickened scar tissue around the patella was removed the patella was subsequently cut utilizing a freehand technique and was drilled prepared for final preparation and placement of patella socially flexion-extension gaps were checked and the equal and symmetric trials were placed to the appropriate femoral and tibial trials with poly-spacer being placed for equal flexion and extension gaps and full range of motion including extension to 0 and flexion to 140 the trial components after having been taken to recovery range of motion was subsequently removed meticulous hemostasis was obtained and maintained subsequently a knee block injection of joint cocktail including ropivacaine 0.5% 150 mg. Bupivacaine 0.5 % epinephrine 1-200,030 mL's toradol 30 mg dexamethasone 4 mg ketamine 10 mg clonidine 100 micrograms normal saline solution 30 mg was infiltrated into the soft tissues of the posterior knee medial lateral gutters and periosteal synovium special attention was paid to protect neurovascular structures at all times subsequently trial components having been removed the knee was irrigated with sterile saline solution. debris was removed the proximal tibia was subsequently prepared and was made ready for the placement of the tibial component tibial component was also cemented and tamped into position the femoral component was subsequently placed and cemented in the position the patellar component was subsequently cemented in position because hemostasis once again obtained and maintained wound having been thoroughly irrigated with debridement and debridement lavage was performed as well as a medial parapatellar incision closed with #1 Vicryl in interrupted fashion subcutaneous was closed with #2 Vicryl skin was closed with skin clips. PA-C was necessary for prepping and drapping as well as wound closure of deep fascia Sub cutaneous tissue and skin and was necessary for the case. A sterile compressive dressing was placed patient was taken to recovery in stable condition of report dictated by Jake I attest to the content of the Intraoperative Record and any orders documented therein. Any exceptions are noted below. I attest to the content of the Intraoperative Record and any orders documented therein. Any exceptions are noted below.
[2017-06-28] MEDS ORDERED: MoRPHine SULFATE 4 MG/ML 1 ML CARP\\VIAL IV PRN (10:45)
[2017-06-28] MEDS ORDERED: ALUMINUM/MAGNESIUM/SIMETH (MAALOX MAX) 30 ML UDC PO PRN (10:45)
[2017-06-28] MEDS ORDERED: MAGNESIUM HYDROXIDE SUSP 30 ML UDC PO PRN (10:45)
[2017-06-28] MEDS ORDERED: CEFAZOLIN IV 2,000 MG in DEXTROSE 5% 50ML 50 ML IV SCH (10:45)
[2017-06-28] MEDS ORDERED: MoRPHine SULFATE 2 MG/ML CARP IV PRN (10:45)
--- NOTE | 2017-06-28 11:02 | DIAGNOSTIC IMAGING REPORT ---
LEFT KNEE 2 VIEWS History: Left total knee arthroplasty. Degenerative arthritis. Postop. FINDINGS: The patient is status post a left total knee arthroplasty. The hardware is intact. No fracture or dislocation. Surgical drains are in place. IMPRESSION: Left total knee arthroplasty. No evidence for hardware complication. Electronically signed by: Lb Trevizo M.D. 06/28/2017 11:00 AM Dictated Date/Time: 06/28/2017 10:59 AM
--- NOTE | 2017-06-28 11:21 | Anesthesiology Progress Note ---
Anesthesia Post Op Note Date & Time Jun 28, 2017 at 11:21 Vital Signs Pain Intensity: 0 Vital Signs Past 12 Hours Date Time Temp Pulse Resp B/P (MAP) Pulse Ox O2 Delivery O2 Flow Rate FiO2 06/28/17 11:10 77 18 124/68 97 Nasal Cannula 2 06/28/17 11:00 70 20 117/68 96 Nasal Cannula 2 06/28/17 10:50 76 19 121/67 97 Nasal Cannula 2 06/28/17 10:40 77 18 109/61 97 Oxymask 10 06/28/17 10:32 37.2 78 16 109/57 96 Oxymask 10 06/28/17 06:05 36.8 78 18 163/84 Room Air Notes Mental Status: alert / awake / arousable, participated in evaluation Pt Amnestic to Procedure: Yes Nausea / Vomiting: adequately controlled Pain: adequately controlled Airway Patency, RR, SpO2: stable & adequate BP & HR: stable & adequate Hydration State: stable & adequate Neuraxial Anesthesia: was administered, sensory block is resolving Anesthetic Complications: no major complications apparent
[2017-06-28] MEDS: D5W AND 1/2NSS + 20MEQ KCL 1,000 ML IV SCH ×2 (12:59→22:22)
[2017-06-28] MEDS: TRANEXAMIC ACID INJ 1,000 MG in SYRINGE 0 ML IV SCH ×2 (13:01→13:02)
[2017-06-28] MEDS: ACETAMINOPHEN 500 MG TAB PO SCH ×2 (13:40→21:25)
[2017-06-28] MEDS: CEFAZOLIN IV 2,000 MG in SYRINGE 0 ML IV SCH (16:01)
[2017-06-28] MEDS: LISINOPRIL 10 MG TAB PO SCH (21:24)
[2017-06-28] MEDS: ASPIRIN 81 MG ECTAB PO SCH (21:25)
[2017-06-28] MEDS: DOCUSATE SODIUM 100 MG CAP PO SCH (21:31)
[2017-06-28] MEDS: SENNA 8.6 MG TAB PO SCH (21:31)
[2017-06-28] MEDS: TRAMADOL HCL 50 MG TAB PO PRN (21:43)
[2017-06-29] VITALS (7 sets, daily range): BP systolic 113–142; BP diastolic 66–79; PULSE 70–82; TEMP 36.5–36.9; O2SAT 95–98
[2017-06-29] MEDS: CEFAZOLIN IV 2,000 MG in SYRINGE 0 ML IV SCH (00:13)
[2017-06-29] MEDS: ACETAMINOPHEN 500 MG TAB PO SCH ×3 (05:39→21:27)
--- NOTE | 2017-06-29 06:19 | Clinical Documentation Query ---
CLINICAL DOCUMENTATION QUERY 66-y/o female who has undergone left TKR. EMR states she has a BMI of 45. In your clinical opinion is this patient being managed for: ( x ) Morbid obesity evidence by BMI of 44.0 ( ) Not Agree ( ) Other explanation of clinical findings (Please Explain) ( ) Unable to determine (Please Define) ( ) Need to Discuss The medical record reflects the following clinical findings, treatment, and risk factors. Clinical Indicators: BMI 44.0 Treatment: TKR, Risk Factors: Age, OA, excessive caloric intake to calorie expenditure. Please clarify and document your clinical opinion in the progress notes and discharge summary. Terms such as "probable", "suspected", "likely", "questionable", "possible", or "still to be ruled out" are acceptable. IF IN AGREEMENT, YOU MUST DOCUMENT ABOVE DIAGNOSTIC STATEMENT IN DAILY PROGRESS NOTES AND DISCHARGE SUMMARY. This document is not part of the patient's record. Thank You, Guru Adams, RN [phone]
--- NOTE | 2017-06-29 07:02 | Orthopedic Progress Note ---
Orthopedic Progress Note Date of Service Jun 29, 2017. Subjective Post OP Day: 1 Reports: feeling well, pain controlled w PO medications, Denies: complaints, chest pain, SOB, nausea / vomiting, light headedness, calf pain Objective calves soft nontender, N/V intact, capillary refill less than 2 sec., dressing C /D/I, A&O x3, toes mobile Date Time Temp Pulse Resp B/P (MAP) Pulse Ox O2 Delivery O2 Flow Rate FiO2 06/29/17 03:49 36.6 77 18 142/71 (94) 98 Room Air 06/29/17 00:20 Room Air 06/28/17 23:25 36.8 82 18 144/71 (95) 95 Room Air 06/28/17 21:20 82 134/63 (86) 06/28/17 20:13 36.7 83 18 117/82 (94) 96 Room Air 06/28/17 18:50 97 Room Air 06/28/17 16:26 37.1 89 20 143/76 (98) 97 Room Air 06/28/17 14:35 36.6 90 18 144/83 (103) 97 Nasal Cannula 2.0 06/28/17 13:35 90 97 153/83 (106) 97 Room Air 06/28/17 12:28 37.1 87 16 138/89 (105) 96 Nasal Cannula 2.0 06/28/17 12:04 75 18 122/70 (87) 95 Nasal Cannula 2.0 06/28/17 11:40 Nasal Cannula 2.0 06/28/17 11:40 Nasal Cannula 2.0 06/28/17 11:35 36.7 75 18 126/70 (88) 96 Nasal Cannula 2.0 06/28/17 11:20 36.6 70 19 115/71 96 Nasal Cannula 2 06/28/17 11:10 77 18 124/68 97 Nasal Cannula 2 06/28/17 11:00 70 20 117/68 96 Nasal Cannula 2 06/28/17 10:50 76 19 121/67 97 Nasal Cannula 2 06/28/17 10:40 77 18 109/61 97 Oxymask 10 06/28/17 10:32 37.2 78 16 109/57 96 Oxymask 10 Laboratory Results 24 Hours: Test 06/29/17 04:44 Assessment & Plan Assessment: POD #1 s/p left TKA -pt/ot -dvt proph with adriana/scd/asa -plan for d/c home with HHPT when stable High Cholesterol HTN Discharge Planning Discharge Planning: home with home health DVT Prophylaxis: TEDs, SCDs, ASA Therapy: Physical Therapy
[2017-06-29] MEDS ORDERED: CRS/10 PO (07:42)
[2017-06-29 08:02] LABS: HEMATOCRIT 31.7 % (37-47); HEMOGLOBIN 10.6 g/dL (12.0-16.0); MEAN CELL VOLUME 86.6 fL (80-100); MEAN CORPUSCULAR HGB CONC 33.4 g/dl (32-36); MEAN PLATELET VOLUME 9.9 fL (7.4-10.4); PLATELET COUNT 198 K/uL (130-400); RED CELL DISTRIBUTION WIDTH CV 12.8 % (11.5-14.5); WHITE BLOOD COUNT 11.98 K/uL (4.8-10.8)
[2017-06-29] MEDS: D5W AND 1/2NSS + 20MEQ KCL 1,000 ML IV SCH (08:02)
[2017-06-29 08:28] LABS: CALCIUM 7.9 mg/dl (8.5-10.1); CREATININE 0.86 mg/dl (0.60-1.20); POTASSIUM 4.1 mmol/L (3.5-5.1)
[2017-06-29] MEDS: OXYCODONE HCL IR 5 MG TAB (IMMEDIATE RELEASE) PO PRN ×3 (09:10→21:27)
[2017-06-29] MEDS: DOCUSATE SODIUM 100 MG CAP PO SCH ×2 (09:10→21:00)
[2017-06-29] MEDS: ASPIRIN 81 MG ECTAB PO SCH ×2 (09:11→21:25)
[2017-06-29] MEDS: LOVASTATIN 20 MG TAB PO SCH (09:11)
[2017-06-29] MEDS: SERTRALINE HCL 100 MG TAB PO SCH (09:12)
[2017-06-29] MEDS: MULTIVITAMIN TAB PO SCH (09:12)
[2017-06-29] MEDS: PANTOprazole SOD 40 MG TAB PO SCH (09:12)
--- NOTE | 2017-06-29 09:20 | Anesthesiology Progress Note ---
Anesthesia Post Op Note Date & Time Jun 29, 2017 at 09:20 Vital Signs Pain Intensity: 6.0 Vital Signs Past 12 Hours Date Time Temp Pulse Resp B/P (MAP) Pulse Ox O2 Delivery O2 Flow Rate FiO2 06/29/17 08:14 98 Room Air 06/29/17 07:51 36.6 70 16 125/66 (85) 98 Room Air 06/29/17 07:45 Room Air 06/29/17 03:49 36.6 77 18 142/71 (94) 98 Room Air 06/29/17 00:20 Room Air 06/28/17 23:25 36.8 82 18 144/71 (95) 95 Room Air Notes Mental Status: alert / awake / arousable, participated in evaluation Pt Amnestic to Procedure: Yes Nausea / Vomiting: adequately controlled Pain: adequately controlled Airway Patency, RR, SpO2: stable & adequate BP & HR: stable & adequate Hydration State: stable & adequate Neuraxial Anesthesia: sensory block resolved Anesthetic Complications: no major complications apparent
[2017-06-29] MEDS: TRAMADOL HCL 50 MG TAB PO PRN (12:45)
--- NOTE | 2017-06-29 15:19 | Discharge Instructions ---
Discharge Instructions Date of Service Jun 29, 2017. Admission Reason for Admission: Left Knee Osteoarthritis Discharge Discharge Diagnosis / Problem: left total knee replacement Discharge Goals Goal(s): Decrease discomfort, Improve function, Increase independence Activity Recommendations Activity Limitations: as noted below Weightbearing Status: Left weightbearing (as tolerated) . Instructions / Follow-Up Instructions / Follow-Up ACTIVITY RECOMMENDATIONS: SELF CARE INSTRUCTIONS AFTER TOTAL KNEE REPLACEMENT A. You may need to continue a physical therapy program after discharge from the hospital. There are several options available to you. Your doctor will assist you in selecting the best one for you. 1. An out-patient facility 2 to 3 times a week for therapy or home therapy. 2. Continue working on all exercises taught to you in the hospital. Your goals should be to increase bending of your knee to 90 degrees and beyond and to fully straighten your knee. B. You may progress at your own pace from walking with a walker or crutches to a cane; then to no assistive devices. C. Make walking a part of your daily routine. Be up as much as comfortable with rest periods throughout the day. Rest with leg elevation is very important. Use the ice wrap frequently for the first 3-4 weeks. D. There are no restrictions on activities. You may ride in a car, shop, participate in automat watcher and all social activities. E. Wear the long elastic stockings (DOMINIQUE hose) 20 hours a day for 2 weeks after surgery. They can be removed several times a day for laundering and for a bath. F. You may shower, no tub baths until cleared by your doctor. SPECIAL CARE INSTRUCTIONS: VERY IMPORTANT TO READ AND REVIEW A. There are a few signs you need to watch for after you are home. Call [facility] [place] if you notice any of the followin. Increased severe knee pain. Some pain is expected especially when you exercise. 2. Increased swelling in your leg or knee; pain or swelling of the calf muscle in either lower leg. 3. Any fluid drainage from the incision. 4. Shortness of breath or chest pain. B. Please call [facility] at if you have any concerns or questions about your operation or recovery. The doctor or his nurse will return your call promptly. C. You must take antibiotics before dental work, bladder, bowel or other surgery. Your doctor will provide you with a permanent care to carry describing this precaution. IMPORTANT: * REMEMBER TO TAKE ASPIRIN, 81 MG, TWICE DAILY FOR 4 WEEKS UNLESS OTHERWISE DIRECTED. THIS IS YOUR BLOOD THINNER. * HIGH RISK PATIENTS MAY BE PRESCRIBED A STRONGER BLOOD THINNER. THIS WILL BE PROVIDED AT DISCHARGE. * CALL IF INCREASED PAIN, REDNESS, DRAINAGE OR FEVER GREATER THAT 101. * WEAR DOMINIQUE HOSE 20 HOURS PER DAY FOR 2 WEEKS. * DERMABOND Prineo- This is a mesh tape dressing that is covered with glue. It should remain in place until the incision is properly healed, usually 10-14 days. This dressing is designed to naturally slough off. You may trim the excess mesh tape as it peels off. Incision may be briefly wet in a shower. Dry immediately by blotting with a clean, dry towel. Do not bath or swim until instructed by your doctor. Do not scratch, rub, or pick at the dressing. Do not apply any topical ointments or lotions until dressing is completely removed and/or instructed by your doctor. There may be a small piece of suture material at one end of your incision. Do not pull or trim this. If it is bothersome or catching on clothing, you may cover it with a band-aid. FOLLOW UP VISIT: If appointment is not already scheduled: Please call [facility] [place] to make a follow-up appointment for 2 weeks after your surgery at . Current Hospital Diet Patient's current hospital diet: Regular Diet Discharge Diet Recommended Diet: Regular Diet Procedures Procedures Performed: Left Total Knee Arthroplasty utilizing Tejeda & Nephew journey 2 nonlocked total knee arthroplasty size 4 femur 3 tibia Poly-29 oval patella Pending Studies Studies pending at discharge: no Laboratory Results Hemoglobin A1c Test 06/23/17 14:07 Range/Units Estimated Average Glucose 114 mg/dl Hemoglobin A1c 5.6 4.5-5.6 % Medical Emergencies . Who to Call and When: Medical Emergencies: If at any time you feel your situation is an emergency, please call 911 immediately. . Non-Emergent Contact Non-Emergency issues call your: Primary Care Provider, Surgeon . "Provider Documentation" section prepared by Hima Jeffrey. . VTE Core Measure Inpt VTE Proph given/why not?: Other Anticoagulation (ASA 81mg po bid x 1 month ), TSantos Miguel, SCD's [place] Drug Monitoring Program Search Results: patient reviewed within database, no issues identified
[2017-06-29] MEDS ORDERED: ROSUVASTATIN CALCIUM 10 MG TAB PO SCH (21:00)
[2017-06-29] MEDS: SENNA 8.6 MG TAB PO SCH (21:00)
[2017-06-29] MEDS: LISINOPRIL 10 MG TAB PO SCH (21:25)
[2017-06-30] MEDS: OXYCODONE HCL IR 5 MG TAB (IMMEDIATE RELEASE) PO PRN ×2 (01:51→09:13)
[2017-06-30] MEDS: ACETAMINOPHEN 500 MG TAB PO SCH (05:50)
[2017-06-30 07:05] VITALS: BP 119/78; PULSE 78; TEMP 36.6; O2SAT 100
--- NOTE | 2017-06-30 08:26 | Orthopedic Progress Note ---
Orthopedic Progress Note Date of Service Jun 30, 2017. Subjective Post OP Day: 2 Reports: feeling well Additional Notes: Having some pain off and on but overall doing well. Hoping to go home today. Objective calves soft nontender, N/V intact, incision C/D/I, A&O x3, toes mobile mild ecchymosis noted at the knee, no erythema. Date Time Temp Pulse Resp B/P (MAP) Pulse Ox O2 Delivery O2 Flow Rate FiO2 06/30/17 07:20 Room Air 06/30/17 07:05 36.6 78 16 119/78 (92) 100 Room Air 06/30/17 01:04 Room Air 06/29/17 23:01 36.5 76 16 113/69 (84) 96 Room Air 06/29/17 21:24 82 135/79 (97) 06/29/17 15:20 Room Air 06/29/17 15:14 36.5 79 18 120/73 (89) 95 Room Air 06/29/17 11:26 36.9 82 16 129/74 (92) 97 Room Air Assessment & Plan Assessment: POD #2 s/p left TKA -pt/ot -dvt proph with adriana/scd/asa -plan for d/c home with HHPT today High Cholesterol HTN Inhouse Planning Pain Management: Ultram, Morphine, PO Tylenol, Oxy IR DVT Prophylaxis: TEDs, SCDs, ASA Discharge Planning Discharge Planning: home with home health DVT Prophylaxis: TEDs, ASA Therapy: Physical Therapy
[2017-06-30] MEDS ORDERED: ASPEC81 PO (08:29)
[2017-06-30] MEDS ORDERED: RXC5 PO ×3 (08:29→08:31)
[2017-06-30] MEDS: DOCUSATE SODIUM 100 MG CAP PO SCH (09:10)
[2017-06-30] MEDS: ASPIRIN 81 MG ECTAB PO SCH (09:10)
[2017-06-30] MEDS: LOVASTATIN 20 MG TAB PO SCH (09:11)
[2017-06-30] MEDS: SERTRALINE HCL 100 MG TAB PO SCH (09:11)
[2017-06-30] MEDS: MULTIVITAMIN TAB PO SCH (09:11)
[2017-06-30] MEDS: PANTOprazole SOD 40 MG TAB PO SCH (09:11)
[2017-06-30 10:04] VITALS: BP 131/64
[2017-06-30 10:42] VITALS: BP 119/78; PULSE 78; TEMP 36.6; O2SAT 100
== END 2017-06-30 13:00 | disposition home health service (06) | DRG 470 ==
LOC: C.ACU 05:52 → C.3E 07:00 → ENRESERV 10:57
PROVIDERS: ADMIT Orthopaedic Surgery; ATTEND Orthopaedic Surgery
PROC: 0SRD0J9 Replacement of Left Knee Joint with Synthetic Substitute, Cemented, Open Approach (ICD-10-PCS; principal; 2017-06-28 08:30)
DX: M17.12 Unilateral primary osteoarthritis, left knee (principal); I10 Essential (primary) hypertension; E78.00 Pure hypercholesterolemia, unspecified; K21.9 Gastro-esophageal reflux disease without esophagitis; F41.9 Anxiety disorder, unspecified; Z79.899 Other long term (current) drug therapy